=== PATIENT | male | born 1950 | race Caucasian/White ===

== ENCOUNTER 2017-06-11 12:27 | Emergency (ER) | payer MEDICARE, OTHER ==
[~2017-06-11] VITALS: Ht 162.6 cm; Wt 90.0 kg
[~2017-06-11 12:27] MED LIST: IBUP800T25 PO
[2017-06-11 12:32] VITALS: Ht 162.6 cm; Wt 90.0 kg
[2017-06-11] MEDS ORDERED: KETOROLAC 30 MG INJ IM STA (13:09)
[2017-06-11] MEDS ORDERED: DIATR MEGLU/DIATRIZOATE SODIUM 120 ML BTL ONE (13:30)
--- NOTE | 2017-06-11 14:30 | RADRPT ---
PROCEDURE: XR Abdomen. CLINICAL INDICATION: G-tube placement. TECHNIQUE: Single AP view of the abdomen was obtained after the uneventful injection of 50 cc of g astrographin through the indwelling percutaneous G tube. Number of images obtained: 1. Fluoro t ana: 0 seconds. COMPARISON: None available. FINDINGS: Percutaneous G tube overlies the left upper quadrant. Contrast is seen opacifying the stomach and pr oximal small bowel. There is no evidence of extravasation. There is a mild amount of retained fecal material throughout the colon no overly distended small bowel loops are seen. Moderate degenerative changes are present in the lower lumbar spine. Bilateral hip degenerative changes are also noted. IMPRESSION: 1. Contrast opacifies the stomach, consistent with satisfactory position of the percutaneous G tube within the stomach. No evidence of extravasation. 2. Moderate amount of retained fecal material in the colon, suggesting possible mild constipation. RPTAT: JJ .Mesfin Major MD, MD Date Time Electronically viewed and signed by .Mesfin Major MD, on 06/11/2017 14:30 .A/
[2017-06-11 15:09] VITALS: BP 125/67; PULSE 74; RESP 19; TEMP 98.3
--- NOTE | 2017-06-11 18:06 | ERD ---
ER Documentation Chief Complaint Date/Time DATE: 06/11/17 TIME: 18:03 Chief Complaint for gt replacement HPI 67-year-old man with a history of dysphagia and gastrostomy tube presents with gastrostomy tube dislodgment. Episode occurred about 3 hours prior to arrival. He has had no fevers or chills, no weight loss, no vomiting. ROS All systems reviewed and are negative except as per history of present illness. Medications Home Meds Reported Medications Ibuprofen* (Ibuprofen*) 800 Mg Tablet, 800 MG PO DAILY 09/22/13 Allergies Allergies: Coded Allergies: No Known Allergy (Unverified , 09/22/13) PMhx/Soc Past medical history reviewed includes dysphagia and stroke History of Surgery: Yes (HERNIA ; APPENDECTORY) Anesthesia Reaction: No Hx Neurological Disorder: Yes (CVA; SEIZURE) Hx Respiratory Disorders: No Hx Cardiac Disorders: Yes (HTN) Hx Psychiatric Problems: No Hx Miscellaneous Medical Probl: Yes (GERD) Hx Alcohol Use: No Hx Substance Use: No Hx Tobacco Use: Yes Smoking Status: Former smoker FmHx Family History: No diabetes Physical Exam Vitals Vital Signs Date Time Temp Pulse Resp B/P Pulse Ox O2 Delivery O2 Flow Rate FiO2 06/11/17 15:09 98.3 74 19 125/67 98 Room Air 06/11/17 12:32 98.0 72 18 122/81 97 Physical Exam GENERAL: Well-developed, well-nourished, well-hydrated, in no apparent distress , looks nontoxic in appearance HEENT: Moist mucous membranes, pink conjunctiva, no cervical spine tenderness or step-off deformities, no goiter, no jaundice or icterus, extraocular movements intact without pain. No submandibular induration, and no pharyngeal erythema NEURO: Alert and oriented 3, cranial nerves II through XII intact bilaterally, pupils equal round reactive to light, no focal deficits or facial asymmetry, sensation intact distally Strength 5/5 in upper and lower extremities bilaterally CARDIAC: Regular rate and rhythm, no murmurs rubs or gallops LUNGS: Clear bilaterally no wheezing crackles or stridor ABDOMEN: Soft nontender, no guarding, no rigidity, no rebound, no psoas sign no obturator sign. Normoactive bowel sounds SKIN: Warm and dry to touch, no abrasions, contusions, or hematomas, no lacerations, no ecchymosis, no target lesions, and without ulcers EXTREMITIES: No clubbing cyanosis or edema, calves are bilaterally symmetrical, no Homans sign, no popliteal cord sign. Distal pulses equal and bilateral PSYCH: Normal affect without agitation or irritability Results 24 hrs Current Medications Medications (Trade) Dose Ordered Sig/Cristino Route PRN Reason Start Time Stop Time Status Last Admin Dose Admin Ketorolac Tromethamine (Toradol) 30 mg ONCE STAT IM 06/11/17 13:09 06/11/17 13:10 DC 06/11/17 13:20 Diatrizoate Meglum/ Diatrizoate Sod (Gastrografin 66-10 Solution) 120 ml STK-MED ONCE .ROUTE 06/11/17 13:30 06/11/17 13:31 DC Procedures/MDM I administered Toradol 30 mg intramuscular injection for pain control, gastrostomy tube site was inspected, it was cleansed, and new 16 Indonesian tube was placed, balloon was insufflated with 10 cc of sterile saline and placement was confirmed by me with auscultation. One view abdominal x-ray was also performed with Gastrografin through the gastrostomy tube, though there was no leaking of Gastrografin, all of the dye is within the stomach lumen. X-ray read by me. Patient feels much better at this time, and vital signs are normal, symptoms have improved. I did give strict instructions to return to the ED if symptoms continue or worsen, patient will otherwise follow-up with primary care physician. Patient understood instructions and agreed to plan. Disclaimer: Inadvertent spelling and grammatical errors are likely due to EHR/ dictation software use and do not reflect on the overall quality of patient care. Also, please note that the electronic time recorded on this note does not necessarily reflect the actual time of the patient encounter. Departure Diagnosis: Primary Impression: Encounter for feeding tube placement Additional Impression: Dysphagia Dysphagia type: unspecified Qualified Code: R13.10 - Dysphagia, unspecified type Condition: Good Patient Instructions: Feeding Tube Replacement Referrals: CINDY HOWELL MD, DAVID MD Jun 11, 2017 18:06
== END 2017-06-11 15:08 | disposition home or self-care (01) ==
LOC: E/R 12:27
DX: R13.10 Dysphagia, unspecified (principal); R40.2252 Coma scale, best verbal response, oriented, at arrival to emergency department; R40.2142 Coma scale, eyes open, spontaneous, at arrival to emergency department; R40.2362 Coma scale, best motor response, obeys commands, at arrival to emergency department; I10 Essential (primary) hypertension; Z43.1 Encounter for attention to gastrostomy; Z87.891 Personal history of nicotine dependence
CPT/HCPCS: 74000; 96372; 99284; J1885